=== PATIENT | female | born 1965 | race Caucasian/White ===

== ENCOUNTER 2017-03-12 02:27 | Inpatient (IN) | payer OTHER ==
[~2017-03-12] VITALS: Ht 152.4 cm; Wt 102.1 kg
[~2017-03-12 02:27] MED LIST: ATORVASTATIN CA20 M1 PO; CYMBALTA30 M1 PO; GLIPIZIDE10 M2 PO; LISINOPRIL10 M1 PO; METFORMIN HCL500 M3 PO; TOPAMAX50 M1 PO
--- NOTE | 2017-03-12 14:50 | Operative Report ---
Operative/Inv Procedure Report Surgery Date: 03/12/17 Name of Procedure: Laparoscopic Sleeve Gastrectomy Pre-Operative Diagnosis: Morbid Obesity BMI 47, DM, HTN, Hypercholesterolemia Post-Operative Diagnosis: Same Estimated Blood Loss: less than 50ml Surgeon/Loader Helper: SHERIF ZHENG DO Anesthesia: general endotracheal tube IV Fluids: 1500 cc Drains: None Specimens: Stomach Complications: None Condition: Stable Operative Indication: This is a 51-year-old female that presented to the office for workup for bariatric surgery. After appropriate workup was completed I discussed with the patient the band, the sleeve, and the gastric bypass. The patient chose to undergo a sleeve gastrectomy. All risks including but not limited to bleeding, infection, leak, stricture, injury to surrounding bowel/esophagus/stomach/liver/ spleen, long-term reflux, DVT/PE, and mortality of 09/999 patients were discussed in detail. The patient understood everything and decided to proceed. Operative/Procedure Note Note: The patient was brought to the operating room and placed on the operating room table in supine position. Venodyne stockings were placed and adequate general endotracheal anesthesia was obtained. The patient was prepped and draped in standard surgical fashion. Began the procedure by making a 2 cm transverse incision supraumbilically and slightly to the left of the midline. Then using a 12 mm clear Visiport and a 10 mm 0 laparoscope, the abdominal cavity was accessed. Great care was taken to go through the anterior rectus sheath, the posterior rectus sheath, and through the peritoneum. Once we entered the peritoneum the abdominal cavity was insufflated to 15 mmHg. Upon initial examination no obvious gross pathology was seen. Accessory trocars were placed, 5 mm in the epigastrium for the Veronica liver retractor. The retractor was inserted and the liver was retracted anteriorly exposing the hiatus, no hiatal hernia was seen. 5 mm ports were placed in the right and left upper quadrant, a 5 mm left lateral port, and a 15 mm right lateral port. Began the procedure by mobilizing the greater curvature of the stomach approximately 7 cm from the pylorus. Once the retrogastric space was reached the whole greater curvature was mobilized maintaining hemostasis using Harmonic scalpel. Full hiatal dissection was performed, no hiatal hernia was seen. Posterior adhesions were taken down using Harmonic scalpel as well. Once the stomach was adequately mobilized a 38 Amharic bougie was inserted and placed along the lesser curvature of the stomach. Once the bougie was in the appropriate position we began creating our sleeve, two 60 mm black staple loads with seamguard followed by two 60 mm purple staple loads with seamguard and finished with a 45 mm purple staple load with seamguard as well. Great care was taken to leave ample room at the incisura angularis, to prevent any twisting or kinking of the sleeve, to stay lateral to the esophagogastric fat pad, and to do a full fundal excision. At the completion of the staple line the staple line was examined, it appeared intact and no obvious bleeding was noted. The bougie was removed, the sleeve was lying nicely without any twisting or kinking. The resected stomach was removed through the right lateral port site. The port and the left upper quadrant were irrigated until clear. All ports were removed under direct visualization no obvious bleeding was noted. The 15 mm port site fascia was closed using 0 Vicryl suture. The skin was closed using 4-0 Monocryl. Steri- Strips and dressings were placed. The patient was successfully extubated and transferred to the recovery room in stable condition. The patient tolerated the procedure well with no complications. Findings: No hiatal hernia, 38 Fr Bougie CC: TAVON DIAZ,AMIRAH PARISI
--- NOTE | 2017-03-12 14:56 | Patient Discharge Instructions ---
Discharge Instructions General Discharge Information You were seen/treated for: Morbid Obesity BMI 47, DM, HTN, Hypercholesterolemia You had these procedures: Surgery Date: 03/12/17 Name of Procedure: Laparoscopic Sleeve Gastrectomy Watch for these problems: fever>101.3, increased pain, redness/swelling/drainage, dizziness, shortness of breath, chest pains No bath, but you may shower: Yes Other wound care: ok to remove outer dressings. leave white steri strips in place. keep incisions clean & dry. Diet Continue normal diet: No Recommended Diet: Bariatric Additional DIET Information: weekly bariatric stage diet advancement as tolerated, as directed Activity Full Activity/No Limits: No Activity Self Limited: Yes Pounds, do NOT lift more than: 10 Other activity limits: no heavy lifting. no strenuous activity. Acute Coronary Syndrome Inclusion Criteria At DC or during hospital stay patient has or had the following: ACS DIAGNOSIS No Discharge Core Measures Meds if any: Prescribed or Continued at Discharge Meds if any: NOT Prescribed or Continued at Discharge Congestive Heart Failure Inclusion Criteria At DC or during hospital stay patient has or had the following: CHF DIAGNOSIS No Discharge Core Measures Meds if any: Prescribed or Continued at Discharge Meds if any: NOT Prescribed or Continued at Discharge Cerebrovascular accident Inclusion Criteria At DC or during hospital stay patient has or had the following: CVA/TIA Diagnosis No Discharge Core Measures Meds if any: Prescribed or Continued at Discharge Meds if any: NOT Prescribed or Continued at Discharge Venous thromboembolism Inclusion Criteria VTE Diagnosis No VTE Type NONE VTE Confirmed by (Test) NONE Discharge Core Measures - Per Current guidelines, there needs to be overlap - treatment for the first 5 days of Warfarin therapy. - If discharged on Warfarin prior to 5 days of - overlap therapy, the patient will need to be - assessed for post discharge needs including - *Post discharge parental anticoagulation - *Warfarin and/or parental anticoagulation education - *Follow up date to check INR post discharge At least 5 days overlap therapy as Inpatient No Meds if any: Prescribed or Continued at Discharge Note: Overlap Therapy is Warfarin and Anticoagulant Meds if any: NOT Prescribed or Continued at Discharge
[2017-03-12] MEDS ORDERED: HYCET 7.5 MG-3473 ML PO (14:58)
[2017-03-12] MEDS ORDERED: PROTONIX40 M3 PO (14:58)
--- NOTE | 2017-03-12 14:58 | Admission Core Measures ---
Admission Lab Results I reviewed the following labs: Laboratory Tests 03/12 1210 Urines Urine Test NEGATIVE Admission Meds I reviewed the following Meds: Current Medications Sig/Jonathan Start time Last Medication Dose Stop Time Status Admin Cefazolin Sodium 2,000 MG ONCE 03/12 0000 NR (Kefzol-Ancef Inj) 03/12 2359 Heparin Sodium 5,000 UNIT ONCE 03/12 0000 NR (Porcine) 03/12 2359 Acute Coronary Syndrome Inclusion Criteria ACS Diagnosis No Inpatient Core Measures LDL Reminder: If No, please order W/I first 24hr of stay Congestive Heart Failure Inclusion Criteria CHF Diagnosis No Cerebrovascular accident Inclusion Criteria CVA/TIA Diagnosis No Inpatient Core Measures Bedside Swallow Eval Reminder: If BSE failed, place ST order Antithrombotic Reminder: Order Antithrombotic Medication by end of day 2 Antithrombotic Reminder: Document Reason Antithrombotic Not ordered by end of day 2 AFIB/Flutter Reminder: If Present, add to problem list AFIB/Flutter Reminder: Order Anticoag Medication for pts with AFIB/Flutter Atherosclerosis Reminder: If Present, add to problem list LDL Reminder: If No, please order W/I first 24hr of stay PT Order Reminder: If No, please order Venous thromboembolism Inpatient Core Measures VTE Risk Factors: Age > 40, Obesity, Surgery No [facility] VTE prophylaxis d/t No contraindications No VTE Pharm Prophylaxis d/t No contraindications Inclusion Criteria - Per Current guidelines, there needs to be overlap - treatment for the first 5 days of Warfarin therapy. - Parenteral Anticoagulation (IV or SC) needs to be - given along with Warfarin therapy. VTE Diagnosis No VTE Type NONE VTE Confirmed by (Test) NONE Problem List As ranked by this Provider includes Assessment & Plan 1. S/P laparoscopic sleeve gastrectomy HOME MEDS Home Med List Atorvastatin Calcium 20 MG TABLET 1 TAB PO DAILY CHOLESTEROL (Reported) Duloxetine Hydrochloride (Cymbalta) 30 MG CAPSULE.DR 1 CAP PO NIGHTLY MIGRAINES (Reported) Glipizide 10 MG TABLET 1 TAB PO NIGHTLY DM II (Reported) Lisinopril 10 MG TABLET 1 TAB PO NIGHTLY HTN (Reported) Metformin HCl 500 MG TABLET 1 TAB PO BID DM II (Reported) Topiramate (Topamax) 50 MG TABLET 1 TAB PO NIGHTLY MIGRAINES (Reported)
--- NOTE | 2017-03-12 15:03 | Surg Short-stay <48hrs Dis Sum ---
Visit Information Visit Dates Admission Date: 03/12/17 Discharge Date: 03/13/17 Surgical Short Stay DC Summary Admission Diagnosis: Morbid Obesity (BMI 47), DM, HTN, Hypercholesterolemia Final Diagnosis: same as above, s/p Surgery Date: 03/12/17 Name of Procedure: Laparoscopic Sleeve Gastrectomy Procedure(s): Surgery Date: 03/12/17 Name of Procedure: Laparoscopic Sleeve Gastrectomy Summary/Significant Findings: Electively schedule laparoscopic sleeve gastrectomy by on 03/12/17 for history of morbid obesity (BMI 47), DM, HTN, and Hypercholesterolemia. Pain control transitioned from iv to oral medication. Lovenox teaching done for continued treatment at home, according to the pre-operative risk assessment. The patient was tolerating a stage 1 bariatric diet at the time of discharge to home. Accuchecks were monitored through her hospitalization, while her oral diabetic medications were held. Condition at Discharge: stable Discharge Disposition: home or self care Discharge instructions provided to patient/family: Yes Post discharge follow-up plan: one week follow up visit with pre-printed instructions provided lovenox teaching done
[2017-03-12] MEDS ORDERED: LOVENOX40 MG/0.1 SC (15:20)
--- NOTE | 2017-03-12 16:46 | PN- Bariatrics ---
Subjective Subjective: POST-OP NOTE: "Soreness". No nausea at this time. Just arrived to floor from pacu. Hasn't been out of bed yet. No dizziness. No shortness of breath. No chest pains. Due to void later this evening. Objective Vital Signs and I&Os pacu flowsheet reviewed, vitals stable Physical Exam: General - alert & oriented x 3. comfortable. no acute distress. Lungs - clear bilaterally. no w/r/r. Cardiac - s1s2. reg. Abdomen - soft. dressings c/d/i. expected tushar-incisional tenderness. No drains. Extremities - warm bilaterally. no c/c/e. calves soft and nontender b/l. athrombics active. Current Medications: Current Medications Sig/Jonathan Start time Last Medication Dose Route Stop Time Status Admin Cefazolin Sodium 2,000 MG ONCE 03/12 0000 NR IV 03/12 2359 Heparin Sodium 0 .STK-MED ONE 03/12 1240 DC (Porcine) .ROUTE Heparin Sodium 5,000 UNIT ONCE 03/12 0000 NR (Porcine) SC 03/12 2359 Results Last 48 Hours of Labs: Laboratory Tests 03/12 1210 Urines Urine Test NEGATIVE Assessment/Plan Assessment/Plan This 51 year old with hx morbid obesity (bmi 47), niddm, htn, hld, is POD#0 s/p lap sleeve gastrectomy stage 1 bariatric diet as tolerated npo after midnight for possible ugi study in am pain control as ordered monitor accuchecks off oral dm meds monitor bp off lisinopril hep sc tonight / lovenox to start in the morning - dvt ppx protonix - gi ppx tushar-operative ancef x 2 due to void later tonight will d/w Core Measures/Miscellaneous Venous Thromboembolism VTE Risk Factors: Age > 40, Obesity, Surgery VTE Contraindications: No Contraindications VTE Diagnosis: No VTE Type: NONE VTE Confirmed by (Test): NONE [facility] Is [facility] a Home Med? No Antibiotics Is Patient on Antibiotics? Yes If Yes: prophylaxis
[2017-03-12 17:00] VITALS: BP 128/78
--- NOTE | 2017-03-12 19:56 | NUR ---
LATE ENTRY: PATIENT ARRIVED TO FLOOR AT 1626 FROM PACU, S/P LAP SLEEVE VS 97.6 84 16 128/78 92% 2L O2 A&OX3, SLEEPY, IN ROOM. ON ROOM AIR, COULD NOT GET PATIENT PAST 90%, PLACED ON 2L O2. INDEPENDENT, NEEDS ASSISTANCE WITH IV AND ALPS. 5 SMALL DSGS TO ABD, ONE WITH DRIED BLOOD, NO ACTIVE BLEEDING. HAS VOIDED IN TOILET. IV #20 TO RF WITH NS WITH 20 MEQ KCL @ 125 ML/HR RUNNING. IV #22 TO RH HEP LOCKED. PATIENT ORIENTED TO ROOM AND CALL GONZALEZ. SAFETY MAINTAINED, NEEDS WITHIN REACH.
[2017-03-12 22:27] VITALS: BP 116/74
[2017-03-13 02:30] VITALS: BP 120/66
[2017-03-13 06:41] VITALS: BP 120/60
--- NOTE | 2017-03-13 06:58 | PN- Bariatrics ---
See Addendum Subjective Subjective: The patient was seen this morning postoperatively day #1. She reports her pain is under adequate control and she is without nausea this morning. She does feel excessively tired since surgery but has no other complaints. Objective Vital Signs and I&Os Vital Signs Date Time Temp Pulse Resp B/P B/P Pulse O2 O2 Flow FiO2 Mean Ox Delivery Rate 03/13 0230 99.2 82 20 120/66 95 Nasal 2.0L Cannula 03/13 0000 Nasal 1.0L Cannula 03/12 2300 93 Nasal 1.0L Cannula 03/12 2227 98.8 86 20 116/74 90 / 1943 94 Nasal 2.0L Cannula 03/12 1700 92 Nasal 2.0L Cannula 03/12 1700 97.6 84 16 128/78 92 Nasal 2.0L Cannula 03/12 1700 92 Nasal 2.0L Cannula Intake & Output 03/13 0800 07/06 0000 07/05 1600 07/05 0800 07/ 0000 07/04 1600 Intake Total 2748 Output Total 740 600 Balance -740 2148 Intake, IV 2268 Intake, Oral 480 Output, Urine 740 600 Patient 225 lb Weight Weight Reported by Patient Measurement Method Physical Exam: Gen.: Alert and in no obvious distress Skin: Warm and dry Cardiac: S1 and S2 regular Pulmonary: Bilateral breath sounds were equal and slightly decreased at bases Abdomen: Soft, obese, appropriate incisional tenderness, bowel sounds positive. Port sites are bloody but otherwise intact Extremities: Bilateral lower extremities are warm without calf tenderness or significant edema. Assessment/Plan Assessment/Plan Assessment: 51-year-old female status post laparoscopic sleeve gastrectomy postoperative day 1. The patient is progressing as expected, her pain is under adequate control, and she is without nausea. Plan: Follow-up morning laboratory studies Cancel upper GI series and proceed to a stage I bariatric diet Decrease IV fluids Continue current pain regiment GI and DVT prophylaxis Lovenox education Out of bed and ambulate Incentive spirometry Continue to monitor Accu-Cheks Core Measures/Miscellaneous Venous Thromboembolism VTE Risk Factors: Age > 40, Obesity, Surgery VTE Contraindications: No Contraindications VTE Diagnosis: No VTE Type: NONE VTE Confirmed by (Test): NONE [facility] Is [facility] a Home Med? No Antibiotics Is Patient on Antibiotics? No
[2017-03-13 08:33] LABS: ABSOLUTE BASOPHIL COUNT 0 /CUMM (0.0-0.2); ABSOLUTE EOSINOPHIL COUNT 0 /CUMM (0.0-0.7); ABSOLUTE GRANULOCYTE CT 9.7 /CUMM (1.4-6.5); ABSOLUTE MONOCYTE COUNT 0.6 /CUMM (0.10-0.60); BASOPHIL % 0 % (0.0-2.0); EOSINOPHIL % 0 % (0-5); HEMATOCRIT 40.6 % (37-47); MEAN CORPUSCULAR HGB 25.3 PG (27.0-31.0); MEAN CORPUSCULAR HGB CONC 32.5 G/DL (33.0-37.0); MEAN CORPUSCULAR VOLUME 77.7 FL (81.0-99.0); MEAN PLATELET VOLUME 9.1 FL (7.4-10.4); PLATELET COUNT 277 /CUMM (130-400); RBC DISTRIBUTION WIDTH 15.7 % (11.5-14.5); RED BLOOD CELL CT 5.23 /CUMM (4.20-5.40)
[2017-03-13 10:09] LABS: WHITE BLOOD CELL COUNT 11.3 /CUMM (4.8-10.8)
[2017-03-13 14:28] VITALS: BP 122/64
--- NOTE | 2017-03-13 16:55 | NUR ---
NURSING NOTE: PT STABLE FOR DISCHARGE PER MD. DISCHARGE INSCTRUCTIONS GIVEN WITH VERBAL UNDERSTANDING. PT TO [facility].
== END 2017-03-13 16:54 | DRG 403 ==
LOC: SDA 02:27 → ENRESERV 15:37 → ENTRNSPT 16:00 → 2NB 16:25 → CMPTRNSPT 16:38 → 2NB 03-13 16:54
PROVIDERS: Physician Assistant Surgical; ADMIT Surgery
PROC: 0DB64Z3 Excision of Stomach, Percutaneous Endoscopic Approach, Vertical (ICD-10-PCS; principal; 2017-03-12)
DX: E66.01 Morbid (severe) obesity due to excess calories (principal); Z68.42 Body mass index [BMI] 45.0-49.9, adult; E11.9 Type 2 diabetes mellitus without complications; I10 Essential (primary) hypertension; E78.00 Pure hypercholesterolemia, unspecified; E78.5 Hyperlipidemia, unspecified; Z79.84 Long term (current) use of oral hypoglycemic drugs
CPT/HCPCS: 2NBSP; 36415; 81025; 82436; C9399; J0131; J0690; J1170; J1644; J1650; J1885; J2405; J3490